=== PATIENT | female | born 1960 | race Caucasian/White ===

== ENCOUNTER 2019-07-02 06:04 | Day surgery (SDC) | payer BC, OTHER ==
[~2019-07-02] VITALS: Ht 190.5 cm; Wt 69.0 kg
[2019-07-02] VITALS (16 sets, daily range): BP systolic 106–160; BP diastolic 53–73; PULSE 64–79; RESP 13–19; Ht 190.5 cm; Wt 69.0 kg
[~2019-07-02 06:04] MED LIST: ATOR20TA38 PO; LISI10TA2 PO
[2019-07-02] MEDS ORDERED: CEFAZOLIN 2 GM/50 ML (PMX) 50 ML IVPB ONE (07:00)
[2019-07-02] MEDS ORDERED: SOD CHLORIDE 0.9% 1,000 ML IV SCH (07:00)
--- NOTE | 2019-07-02 08:03 | PREAC ---
Date/Time of Note Date/Time of Note DATE: 07/02/19 TIME: 08:00 Anesthesia Eval and Record Evaluation Time Pre-Procedure Interview DATE: 07/02/19 TIME: 08:00 Age 59 Sex female NPO: 8 hrs Preoperative diagnosis gallstones Planned procedure lap choly Past Medical History Past Medical History: Includes Cardio: HTN, Dyslipidemia, Other (peripheral arterial disease ) Surgery & Anesthesia Issues No known issue Meds Anticoagulation: No Beta Yrn within 24 hr: No Reason Beta Yrn not given: Pt. not on B-Yrn Reported Medications Atorvastatin Calcium* (Atorvastatin Calcium*) 20 Mg Tablet, 20 MG PO QHS, #30 TAB 07/02/19 Lisinopril* (Lisinopril*) 10 Mg Tablet, 10 MG PO DAILY, #30 TAB 07/02/19 Current Medications Sodium Chloride 1,000 ml @ 75 mls/hr [id number] IV ; Start 07/02/19 at 07:00 Meds reviewed: Yes Allergies Coded Allergies: No Known Allergy (Unverified , 07/02/19) Allergies Reviewed: Yes Labs/Studies Labs Reviewed: Reviewed by anesthesiologist test: N/A Pre-procedure Exam Last vitals Vital Signs Date Temp Pulse Resp B/P (MAP) Pulse Ox O2 O2 Flow FiO2 Time Delivery Rate 07/02/19 97.6 77 14 160/73 97 Room Air 06:53 (102) Airway: Adequate mouth opening, Adequate thyromental dist Mallampati: Mallampati IV Teeth: Normal Lung: Normal Heart: Normal ASA Physical Status ASA physical status: 3 Emergency: None Pre-operative Attestations Prior to commencing anesthesia and surgery, the patient was re-evaluated, there was verification of: *The patient's identity *The results of appropriate recent lab work and preoperative vital signs *The above evaluation not changing prior to induction *Anesthetic plan, risk benefits, alternative and complications discussed with patient/family; questions answered; patient/family understands, accepts and wishes to proceed. BRUCE AGUILERA DO Jul 02, 2019 08:03
[2019-07-02] MEDS ORDERED: LIDOCAINE 2% (SDV) 5 ML INJ ONE (08:19)
[2019-07-02] MEDS ORDERED: MIDAZOLAM 1 MG/ML 2 ML INJ ONE (08:19)
[2019-07-02] MEDS ORDERED: ETOMIDATE 20 MG INJ ONE (08:19)
[2019-07-02] MEDS ORDERED: ROCURONIUM 50 MG INJ ONE (08:19)
[2019-07-02] MEDS ORDERED: FENTAnyl 50 MCG/ML VIAL ONE ×2 (08:19)
[2019-07-02] MEDS ORDERED: PROPOFOL 20 ML ONE (08:19)
[2019-07-02] MEDS ORDERED: ESMOLOL 10 ML ONE (08:27)
[2019-07-02] MEDS ORDERED: ROPIVACAINE 0.5 % 30 ML VIAL ONE (08:35)
[2019-07-02] MEDS ORDERED: CEFAZOLIN 1 GM INJ ONE (08:58)
[2019-07-02] MEDS ORDERED: hydrALAzine 20 MG INJ ONE (09:07)
[2019-07-02] MEDS ORDERED: SUGAMMADEX SODIUM 200 MG/2 ML VIAL IV ONE (09:15)
[2019-07-02] MEDS ORDERED: LABETALOL HCL 20MG INJ ONE (09:20)
[2019-07-02] MEDS ORDERED: ONDANSETRON 4 MG INJ ONE (09:27)
--- NOTE | 2019-07-02 09:52 | PAC ---
Date/Time of Note Date/Time of Note DATE: 07/02/19 TIME: 09:52 Post-Anesthesia Notes Post-Anesthesia Note Last documented vital signs Vital Signs Date Temp Pulse Resp B/P (MAP) Pulse Ox O2 O2 Flow FiO2 Time Delivery Rate 07/02/19 97.6 77 14 160/73 97 Room Air 06:53 (102) Activity: WNL Respiratory function: WNL Cardiovascular function: WNL Mental status: Baseline Pain reasonably controlled: Yes Hydration appropriate: Yes Nausea/Vomiting absent: Yes BRUCE AGUILERA DO Jul 02, 2019 09:52
[2019-07-02] MEDS ORDERED: HYDROmorphONE 1 MG/5 ML IV SYRINGE IV ONE (09:55)
[2019-07-02] MEDS ORDERED: HYDROmorphONE 1 MG/5 ML IV SYRINGE IV PRN ×2 (10:00)
[2019-07-02] MEDS ORDERED: ONDANSETRON 4 MG INJ IV PRN (10:00)
[2019-07-02] MEDS ORDERED: METOCLOPRAMIDE 10 MG INJ IV PRN (10:00)
[2019-07-02] MEDS: HYDROmorphONE 1 MG/5 ML IV SYRINGE IV PRN ×3 (10:13→10:29)
[2019-07-02] MEDS ORDERED: HYDROCODONE/APAP (5/325) TAB PO ONE (10:30)
--- NOTE | 2019-07-02 10:30 | OPR ---
Date/Time of Note Date/Time of Note DATE: 07/02/19 TIME: 10:27 Operative Report Procedure Date: Jul 02, 2019 Preoperative Diagnosis symptomatic gallstones Postoperative Diagnosis same Operation/Procedure Performed laparoscopic cholecystectomy Surgeon see signature line Repair Manager none Anesthesia Type: general Estimated Blood Loss: 0 - 10 ml's Transfusion none Specimen gallbladder Grafts/Implants none Complications none Indications This is a 59-year-old female with a tender gallstones. She required surgical excision of her gallbladder. Risks alternatives benefits and personal were discussed the patient. Patient expressed understanding consents to the operation. Procedure Description Patient is taken to the OR and prepped and draped in usual sterile fashion. Surgical timeout is performed. IV antibiotics given. Infraumbilical transverse incision was made with a 15 blade. Dissection with cautery skin onto the f ascia. The fascia was grasped with Jeanette's and divided curved scissors. 0 Vicryl use this was placed into the fascia. Wilkes trocar is introduced. Pneumoperitoneum is status. Midepigastric 12 mm optical trochars placed under direct visualization. Right upper quadrant upper flank 5 bladder optical trochars were placed under direct visualization. Upon initial inspection there is adhesions to gallbladder which obtain a bluntly showing evidence of chronic cholecystitis. The gallbladder is grasped the fundus and retracted and lateral cephalad direction. [place] graspers were used to dissect out the cystic duct and cystic artery. The critical view was established. The cystic duct is divided to close proximal to distal and the division is performed laparoscopic scissors. Cystic artery was divided to close proximal clip distal and the division is performed laparoscopic scissors. The gallbladder was taken of the gallbladder bed. Good hemostasis status. The gallbladder is retrieved Endo Catch bag. All ports removed under direct visualization. Overdiuresis tied down. Skin is closed and skin jered. A tap block was provided by the anesthesiology to begin the case. Dry dressings were applied. Lionel AMBRIZ Jul 02, 2019 10:30
[2019-07-02] MEDS ORDERED: HYDROCODONE/APAP (5/325) TAB ONE (10:32)
== END 2019-07-02 13:50 | disposition home or self-care (01) ==
LOC: SDS 06:04
PROVIDERS: ATTEND Surgery
DX: K80.10 Calculus of gallbladder with chronic cholecystitis without obstruction (principal); I10 Essential (primary) hypertension; E78.5 Hyperlipidemia, unspecified; I73.9 Peripheral vascular disease, unspecified
CPT/HCPCS: 47562; J0360; J0690; J1170; J2250; J2405; J2795; J3010; Z7610; 88304